=== PATIENT | female | born 1975 | race Caucasian/White ===

== ENCOUNTER 2020-01-23 22:47 | Inpatient (IN) | payer MEDICARE ==
[~2020-01-23] VITALS: Ht 165.1 cm; Wt 112.4 kg
--- NOTE | ~2020-01-23 | HEMODYNAMI ---
PATIENT:OZZY RODRIGUEZ MEDICAL RECORD: [id number] : 73 LOCATION:[facility] D.2122 ADMISSION DATE: 01/23/20 Generatedon:01/24/202011:43 Patient name: OZZY RODRIGUEZ Patient #: [id number] SSN: [id number] : 1975 Date of study: 01/24/2020 Page: Of Hemodynamic Procedure Report Patient Data Patient Demographics Procedure consent was obtained First Name: OZZY Gender: Female Last Name: JENNIFER : 1975 Patient #: [id number] Age: 44 year(s) Race: Unknown SSN: [id number] Additional ID: [id number] Contact details [address]: [address] [place] [address] 4 State: [place] City: [place] Zip code: [address] Past Medical History Allergies Allergen Reaction Date Comments Reported Other allergy 01/24/2020 ARTIFICIAL SWEETNERS, SILK TAPE, MOBIC Admission Admission Data Admission Date: 01/23/2020 Admission Time: 23:30 Room #: D.2122 Height (in.): 64.96 BSA: 2.17 (m2) Height (cm.): 165 BMI: 41.51 (kg/m2) Weight (lbs.): 249.12 Weight (kg.): 113 Lab Results Lab Result Date: 01/24/2020 Lab Result Time: 0:00 Biochemistry Name Units Result Min Max BUN mg/dl 17 --(---*)-- 7 18 Creatinine mg/dl 0.7 --(*---)-- 0.6 1.3 eGFR ml/min 90 --(*---)-- 90 120 NONAFRICAN CBC Name Units Result Min Max Hematocrit % 43.7 --(*---)-- 42 54 Hemoglobin g/dl 14.7 --(-*--)-- 13.5 17.5 Procedure Procedure Types Cath Procedure Diagnostic Procedure C [facility] w/Coronaries Procedure Description Procedure Date Procedure Date: 01/24/2020 Procedure Start Time: 11:32 Procedure End Time: 11:40 Procedure Staff Name Function Esme Gibson MD Performing Physician Christi Myers RT Monitor Angeline Flores RT Scrub Zina Reeder RN Nurse Procedure Data Cath Procedure Fluoroscopy Diagnostic fluoroscopy Total fluoroscopy Time: 0.8 time: 0.8 min min Diagnostic fluoroscopy Total fluoroscopy dose: 152 dose: 152 mGy mGy Contrast Material Contrast Material Type Amount (ml) Isovue 300 13 Entry Location Entry Primary Successful Side Size Upsize Upsize Entry Closure Cook ccessful Closure Location (Fr) 1 (Fr) 2 (Fr) Remarks Device Remarks Radial Right 6 Fr Mechanical artery Short Compression Estimated blood loss: 5 ml Diagnostic catheters Device Type Used For End Catheter Placement DIAGNOSTIC [place] 110cm 5 Procedure Fr catheter ([id number]) Procedure Complications No complications Procedure Medications Medication Administration Route Dosage 0.9% NaCl I.V. 100 ml/hr Oxygen etCO2 Nasal cannula 2 l/min Lidocaine 2% added to field 20 Heparin Flush Bag added to field 2 bags (1000units/500ml NS) Versed I.V. 1 mg Fentanyl I.V. 25 mcg Radial Cocktail added to field 1 syringe (Verapamil 2mg/Nitro 400mcg/Heparin 1500units) Hemodynamics Rest BSA: 2.17 (m2) HGB: 14.7 (g/dl) O2 Consumption: Estimated: 219.53 (ml/min) O2 Co nsumption indexed: Estimated:101.17 (ml/min/m) Heart Rate: 74 (bpm) Pressure Samples Time Site Value (mmHg) Purpose Heart Use Rate(bpm) 11:36 LV 161/-15,13 EDP 82 11:36 LV 157/-12,13 Snapshot 82 Gradients Valve Time Site Site Mean SEP/DFP Peak To Heart Use 1 2 (mmHg) (sec/min) Peak Rate (mmHg) (bpm) Aortic 11:37 LV AO 84 Snapshots Pre Cath Intra NCS Post Cath Vital Signs Time Heart Resp SPO2 etCO2 NIBP (mmHg) Rhythm Pain Sedation Rate (ipm) (%) (mmHg) Status Level (bpm) 11:06:41 75 12 96 22.4 169/100(132) NSR 0 (11) 10(A) , No pain 11:11:09 77 16 96 26.1 159/93(140) NSR 0 (11) 10(A) , No pain 11:15:40 75 15 96 23.1 147/92(119) NSR 0 (11) 10(A) , No pain 11:20:06 83 16 95 23.1 154/90(119) NSR 0 (11) 10(A) , No pain 11:24:34 81 12 95 23.9 142/89(124) NSR 0 (11) 10(A) , No pain 11:28:54 83 19 96 23.9 143/89(112) NSR 0 (11) 10(A) , No pain 11:33:19 79 19 97 24.6 152/99(122) NSR 0 (11) 10(A) , No pain 11:37:43 84 24 96 23.1 135/84(109) NSR 0 (11) 10(A) , No pain Medications Time Medication Route Dose Verified Delivered Reason Notes E ffectiveness by by 11:04:55 0.9% NaCl I.V. 100 Norred Zina used for ml/hr Arthur Reeder project product manager 11:05:01 Oxygen etCO2 2 l/min Norred Zina used for Nasal Arthur Reeder procedure cannula RN 11:05:05 Lidocaine 2% added 20ml Norred Norred for local to vial Arthur Gibson MD anesthetic field 11:05:10 Heparin Flush added 2 bags Norred Norred used for Bag to Arthur Gibson MD procedure (1000units/500ml field NS) 11:05:52 Radial Cocktail added 1 Norred Norred used for (Verapamil to syringe Arthur Gibson MD procedure 2mg/Nitro field 400mcg/Heparin 1500units) 11:18:18 Versed I.V. 1 mg Norred Zina for Arthur Reeder sedation RN 11:18:28 Fentanyl I.V. 25 mcg Norred Zina for Arthur Reeder sedation air brush decorator Log Time Note 10:32:08 Informed consent obtained and on chart 10:32:32 Procedure Status Urgent Heart Cath (IP). 10:32:33 Time tracking: Regular hours (M-F 7:00 - 5:00) 10:32:36 Plan of Care:Hemodynamics will remain stable., Cardiac rhythm will remain stable., Comfort level will be maintained., Respiratory function will remain adequate., Patient/ family verbilizes understanding of procedure., Procedure tolerated without complication., Recovers from procedure without complications.. 10:32:45 H&P Date Dictated: 01/24/2020 ER History on chart.. 10:35:11 Lab Result : BUN 17 mg/dl 10:35:11 Lab Result : Creatinine 0.7 mg/dl 10:35:11 Lab Result : eGFR NONAFRICAN 90 ml/min 10:35:11 Lab Result : Hematocrit 43.7 % 10:35:11 Lab Result : Hemoglobin 14.7 g/dl 10:35:58 Patient Weight : 249.12 lbs 10:36:05 Patient Height : 64.96 inches 10:36:32 Angeline Flores RT(R) sent for patient. Start room use. 10:59:40 Patient received from Med II to CCL 1 Alert and oriented. Tansferred to table in Supine position. 10:59:43 Warm blankets applied, and joel hugger turned on for patient comfort. 10:59:44 Correct patient and procedure confirmed by team. 10:59:44 ECG and BP/O2 sat monitors applied to patient. 10:59:46 Full Disclosure recording started 10:59:48 Pre-op teaching completed and patient verbalized understanding. 10:59:54 Patient NPO since Midnight. 10:59:58 Is the patient allergic to Iodine/contrast media? No. 11:00:00 Was the patient premedicated? N/A 11:00:02 Is patient on blood thinner?Yes 11:00:05 ACC The patient was administered the following blood thiners within the last 24 hours: ACCPlavix 11:00:09 Patient diabetic? Yes. 11:00:11 If diabetic: On Metformin? Yes 11:04:55 0.9% NaCl 100 ml/hr I.V. was administered by Zina Reeder RN; used for procedure; Verbal order read back and verified. 11:05:01 Oxygen 2 l/min etCO2 Nasal cannula was administered by Zina Reeder RN; used for procedure; Verbal order read back and verified. 11:05:05 Lidocaine 2% 20ml vial added to field was administered by Esme Gibson MD; for local anesthetic; Verbal order read back and verified. 11:05:10 Heparin Flush Bag (1000units/500ml NS) 2 bags added to field was administered by Esme Gibson MD; used for procedure; Verbal order read back and verified. 11:05:14 Vital chart was started 11:05:52 Radial Cocktail (Verapamil 2mg/Nitro 400mcg/Heparin 1500units) 1 syringe added to field was administered by Esme Gibson MD; used for procedure; Verbal order read back and verified. 11:07:34 Baseline sample Acquired. 11:07:40 Rhythm: sinus rhythm 11:07:43 Family unavailable. 11:08:28 Patient allergic to Other allergyARTIFICIAL SWEETNERS, SILK TAPE, MOBIC 11:08:34 If on Metformin: Last Dose? 01/23/2020 11:08:38 Patient not . Patient has had tubal. 11:08:46 Previous problem with sedation/anesthesia? No ? 11:08:47 Snore? Yes 11:08:48 Sleep apnea? No 11:08:48 Deviated septum? No 11:08:49 Opens mouth fully? Yes 11:08:50 Sticks out tongue? No 11:08:58 Airway obstruction? Yes ASTHMA 11:09:01 Dentures? No ? 11:09:03 Pre procedure: right dorsailis pedis pulse 1+ Palpable, but thready & weak; easily obliterated 11:09:07 Patient pain scale 0/10 ?. 11:09:11 IV patent on arrival in right wrist with 0.9% NaCl at O. 11:09:14 Lab results completed and on chart. 11:09:17 Right Radial & Right Groin area was prepped with chlora-prep and draped in sterile fashion 11:09:18 Alarms reviewed by R. N. 11:09:18 Sharps counted by scrub and verified by R.N. 11:09:19 Sharps counted by scrub and verified by R.N. 11:09:22 ACIST Syringe (34010) opened to sterile field. 11:09:23 Bag Decanter () opened to sterile field. 11:09:24 ACIST Manifold (55241) opened to sterile field. 11:09:25 ACIST Hand Control (56496) opened to sterile field. 11:09:32 Tegaderm 4 x 4 (1626W) opened to sterile field. 11:09:34 Medline Cath Pack ([id number]) opened to sterile field. 11:09:37 EMERALD Guide Wire (472-044) opened to sterile field. 11:17:14 --------ALL STOP TIME OUT------ 11:17:14 Final Timeout: patient, procedure, and site verified with staff and physician. All members of the team are in agreement. 11:17:17 Right groin site verified by team. 11:17:21 Fire Safety Assessment: A--An alcohol-based skin anteseptic being used preoperatively., C--Open oxygen or nitrous oxide is being used., D--An ESU, laser, or fiber-optic light is being used. 11:17:24 Physical assessment completed. ASA score P 2 - A patient with mild systemic disease as per Esme Gibson MD. 11:17:28 1) 90+ Normal kidney functon but urine findings or structural abnormalities or genetic trait point to kidney disease. 11:17:53 Maximum allowable contrast dose (3.7 X eGFR X 0.75)250 ml. 11:17:57 Sedation plan: IV Moderate Sedation Medication:Versed, Fentanyl 11:18:18 Versed 1 mg I.V. was administered by Zina Reeder RN; for sedation; Verbal order read back and verified. 11:18:28 Fentanyl 25 mcg I.V. was administered by Zina Reeder RN; for sedation; Verbal order read back and verified. 11:31:16 Procedure started. 11:31:31 Use device set Radial Dx or PCI 11:31:35 MBrace Wrist Support ([id number]) opened to sterile field. 11:31:41 SHEATH 6FR RAIN (4428736) opened to sterile field. 11:32:13 Local anesthetic to right radial artery with Lidocaine 2% by Esme Gibson MD.INITIAL ACCESS ONLY 11:32:52 Zero performed for pressure channel P1 11:34:32 A 6 Fr Short sheath was inserted into the Right Radial artery 11:35:37 A DIAGNOSTIC [place] 110cm 5 Fr catheter (212773) was advanced over the wire and used for Procedure. 11:35:56 LV gram done using MORENO 11:36:02 Injector settings: Ml/sec: 12, Volume: 8, 11:36:39 LV hemodynamics recorded. 11:37:09 EF : 55 % 11:37:29 RCA angiography performed. 11:37:46 LCA angiography performed. 11:37:48 ACCDominant side:Left 11:37:49 Catheter removed. 11:37:57 Procedure ended.(Physican Out) 11:38:07 ZEPHYR REGULAR TR BAND (511486) opened to sterile field. 11:38:24 Contrast amount:Isovue 300 13ml. 11:38:28 Maximum allowable dose exceeded? No. 11:38:29 Sharps counted by scrub and verified by R.N. 11:38:54 Sheath removed intact; hemostasis achieved with Mechanical Compression to the Right Radial artery. 11:39:03 Fluoroscopy time 00.80 minutes. 11:39:07 Fluoroscopy dose: 152 mGy 11:39:07 Flurop Dose total: 152 11:39:12 Dose Area Product 84383 mGy/cm. 11:39:16 [place] band inflated with 10cc of air. 11:39:18 Post-procedure physical assessment completed. ASA score P 2 - A patient with mild systemic disease as per Esme Gibson MD. 11:39:22 Post procedure rhythm: sinus rhythm 11:39:24 Estimated blood loss: 5 ml 11:39:25 Post procedure instruction explained to patient.Patient verbalizes understanding. 11:39:26 Patient needs reinforcement of post procedure teaching. 11:40:07 Procedure and supply charges have been captured, reviewed, submitted and are correct. 11:40:09 Procedure Complication : No complications 11:40:24 Vital chart was stopped 11:40:25 [facility] Findings: mild to moderate CAD (<70%) 11:40:27 Operative report dictated upon procedure completion. 11:40:27 See physician's report for complete and final results. 11:40:29 Report given to [facility]. 11:40:32 Patient transfered to [facility] with Bed. 11:40:34 Procedure ended. 11:40:34 Full Disclosure recording stopped 11:41:01 End room use (Document Last) Device Usage Item Name Manufacture Quantity Catalog Hospital Part Current Minima l Lot# / Number Charge Number Stock Stock Serial# Code ACIST Acist 1 78304 [id number] 633648 506100 20 Syringe VMO Systems (76434) Glowpoint Inc Bag Microtek 1 085503 91230 344032 5 DecEvery1Mobile Inc. (2002S) ACIST Acist 1 62890 220216 122176 545596 5 Manifold Medical (99805) Systems Inc ACIST Hand Acist 1 98556 578550 341066 497506 5 Control Medical (78353) Systems Inc Tegaderm 4 3M 1 1626W 374395 842771 651103 5 x 4 (1626W) Medline Medline 1 [id number] 166804 39171 702728 5 Cath Pack ([id number]) EMERALD Cardinal 1 502-776 978030 600658 907225 5 Guide Wire Health (628-221) MBrace Advanced 1 140-0250-00 124811 25674 803146 5 Wrist Vascular Support Dynamics ([id number]) SHEATH 6FR Cardinal 1 5965190 152493 6194712 156529 5 [facility] (1732676) DIAGNOSTIC Terumo 1 17-2041 572278 879781 203325 5 [place] 110cm 5 Fr catheter (340109) ZEPHYR Cardinal 1 907188 496246 2916481 187437 5 REGULAR TR Health BAND (178844) Signature Audit Carman Stage Time Signature Unsigned Intra-Procedure 01/24/2020 Christi Myers 11:42:43 AM RT(R) Intra-Procedure 01/24/2020 Zina Reeder 11:43:03 AM RN Intra-Procedure 01/24/2020 Esme Gibson MD 11:43:20 AM [facility] [address] [place] [address]
[2020-01-23] MEDS ORDERED: LEVEMIR IN100 UNITS/ SC (23:01)
[2020-01-23] MEDS ORDERED: NOVOLOG100 UNIT/1 SC (23:01)
[2020-01-23] MEDS ORDERED: LISINOPRIL20 MG PO (23:02)
[2020-01-23] MEDS ORDERED: COLACE100 MG PO (23:02)
[2020-01-23] MEDS ORDERED: GLUCOPHAGE1000 MG PO (23:02)
[2020-01-23] MEDS ORDERED: COREG 3.1253.125 MG PO (23:02)
[2020-01-23] MEDS ORDERED: ZANAFLEX4 MG PO (23:03)
[2020-01-23] MEDS ORDERED: RESTORIL15 MG PO (23:03)
[2020-01-23] MEDS ORDERED: ULTRAM50 MG PO (23:04)
[2020-01-23 23:12] LABS: BASOPHILS 0.2 % (0-2); EOSINOPHILS 1.1 % (0-7); HEMATOCRIT 47.7 % (36.0-48.0); IMMATURE GRANULOCYTES 0.4 % (0-5); LYMPHOCYTES 26.6 % (15-50); MCH 31.7 pg (26.0-34.0); MCHC 33.5 g/dL (31.0-37.0); MCV 94.6 fL (80.0-100.0); MEAN PLATELET VOLUME 9.6 fL (7.4-10.4); MONOCYTES 5.7 % (2-11); PLATELET COUNT 295 10x3/uL (130-400); RBC 5.04 10x6/uL (4.00-5.40); RDW 13.9 % (11.5-14.5); WBC 16.9 10x3/uL (4.8-10.8)
[2020-01-23 23:20] LABS: INR 0.98 (0.85-1.17)
[2020-01-23 23:21] LABS: APTT 30.4 SECONDS (22.8-39.4); CALC OSMOLALITY 283 mosm/kg (275-300); CALCIUM 9.4 mg/dL (8.5-10.1); CARBON DIOXIDE 25.4 mmol/L (21.0-32.0); CHLORIDE - SERUM 104 mmol/L (98-107); CREATININE - SERUM 0.7 mg/dL (0.6-1.3); GLUCOSE 178 mg/dL (74-106); POTASSIUM - SERUM 3.9 mmol/L (3.5-5.1); SODIUM 139 mmol/L (136-145); UREA NITROGEN 17 mg/dL (7-18); eGFR NON AFRICAN AMERICAN > 90 mL/min (90-120)
[2020-01-23 23:37] LABS: ALBUMIN 3.2 g/dL (3.4-5.0); ALKALINE PHOSPHATASE 88 U/L (30-120); ALT (SGPT) 28 U/L (10-68); BILIRUBIN - TOTAL 0.41 mg/dL (0.2-1.3); CREATINE KINASE 49 UL (21-215); MAGNESIUM - SERUM 1.5 mg/dL (1.8-2.4); PROTEIN - SERUM 7.3 g/dL (6.4-8.2); TROPONIN-I 0.056 ng/mL (0.000-0.060)
--- NOTE | 2020-01-24 03:58 | NUR ---
PATIENT LAYING IN BED ON RIGHT SIDE. PATIENT EYES CLOSED BREATHING EVEN AND UNLABORED. PATIENT EASILY AROUSED AND ASKED FOR A WARM BLANKET TO WHICH I GAVE HER. NO OTHER NEEDS OR COMPLAINTS AT THIS TIME. CALL LIGHT WITHIN REACH AND BED IN LOWEST LOCKED POSITION.
[2020-01-24 04:30] VITALS: BP 148/74
[2020-01-24 05:27] LABS: BASOPHILS 0.1 % (0-2); EOSINOPHILS 1.1 % (0-7); HEMATOCRIT 43.7 % (36.0-48.0); HEMOGLOBIN 14.7 g/dL (12-16); IMMATURE GRANULOCYTES 0.4 % (0-5); LYMPHOCYTES 26.6 % (15-50); MCH 31.5 pg (26.0-34.0); MCHC 33.6 g/dL (31.0-37.0); MCV 93.6 fL (80.0-100.0); MEAN PLATELET VOLUME 9.6 fL (7.4-10.4); NEUTROPHILS 66.8 % (40-80); PLATELET COUNT 303 10x3/uL (130-400); RBC 4.67 10x6/uL (4.00-5.40); RDW 13.9 % (11.5-14.5); WBC 16.7 10x3/uL (4.8-10.8)
[2020-01-24 06:08] VITALS: BP 164/109; BMI 41.3
[2020-01-24 06:13] VITALS: BMI 41.3
[2020-01-24 06:51] LABS: ALBUMIN 2.8 g/dL (3.4-5.0); ALKALINE PHOSPHATASE 76 U/L (30-120); ALT (SGPT) 26 U/L (10-68); CALC OSMOLALITY 281 mosm/kg (275-300); CALCIUM 8.7 mg/dL (8.5-10.1); CARBON DIOXIDE 23.1 mmol/L (21.0-32.0); CHLORIDE - SERUM 105 mmol/L (98-107); CKMB 0.7 U/L (0.0-3.6); CREATINE KINASE 39 UL (21-215); CREATININE - SERUM 0.7 mg/dL (0.6-1.3); GLUCOSE 164 mg/dL (74-106); POTASSIUM - SERUM 3.5 mmol/L (3.5-5.1); PROTEIN - SERUM 6.5 g/dL (6.4-8.2); SODIUM 138 mmol/L (136-145); TROPONIN-I 0.056 ng/mL (0.000-0.060); UREA NITROGEN 17 mg/dL (7-18); eGFR NON AFRICAN AMERICAN > 90 mL/min (90-120)
[2020-01-24 08:29] VITALS: BP 136/57
--- NOTE | 2020-01-24 11:07 | NUR ---
PT TO FRONT END MECHANIC.
--- NOTE | 2020-01-24 11:56 | NUR ---
RECEIVED PT BACK TO ROOM 2121. PT STILL A LITTLE DROWSY BUT EASILY AROUSES TO VOICE. VITAL SIGNS STABLE, PLACED PT ON FREQUENT VITAL SIGNS. TR BAND NOTED TO RT WRIST WITH CDI DRESSING, SMALL AMOUNT OF DRY BLOOD NOTED TO SITE. PT DENIES ANY NEEDS AT THIS TIME. CALL LIGHT IN REACH, NAD NOTED, WILL CONTINUE TO MONITOR.
[2020-01-24 12:48] LABS: CKMB 0.8 U/L (0.0-3.6); CREATINE KINASE 32 UL (21-215); TROPONIN-I 0.036 ng/mL (0.000-0.060)
[2020-01-24 13:34] VITALS: Ht 165.1 cm; Wt 112.4 kg
--- NOTE | 2020-01-24 15:02 | NUR ---
REMOVED HALF OF AIR IN TR BAND. NO BLEEDING NOTED. WILL CHECK BACK IN 30MIN. INFORMED PT OF NEED FOR URINE SAMPLE. COLLECTION CUP LEFT AT BEDSIDE, ALSO PROVIDED PT WITH CUP OF LEMON CHICKALOON. PT DENIES ANY OTHER NEEDS AT THIS TIME. CALL LIGHT IN REACH, NAD NOTED, WILL CONTINUE TO MONITOR.
--- NOTE | 2020-01-24 15:42 | NUR ---
REMAINING AIR REMOVED FROM TR BAND. APPLIED 2X2 AND BANDAID TO SITE. NO BLEEDING OR HEMATOMA NOTED. PT DENIES ANY NEEDS AT THIS TIME. CALL LIGHT IN REACH, NAD NOTED, WILL CONTINUE TO MONITOR.
--- NOTE | 2020-01-24 16:52 | NUR ---
BLOOD SUGAR OF 285, 6UNITS GIVEN PER S/S. PT DENIES ANY OTHER NEEDS AT THIS TIME. CALL LIGHT IN REACH, NAD NOTED,WILL CONTINUE TO MONITOR.
[2020-01-24 18:04] LABS: BILIRUBIN NEGATIVE (NEGATIVE); GLUCOSE 1000 mg/dL (NEGATIVE); KETONE NEGATIVE (NEGATIVE); NITRITE NEGATIVE (NEGATIVE); UROBILINOGEN NORMAL (NORMAL)
[2020-01-24 18:07] LABS: WHITE CELLS - URINE 25-50 /hpf (NEGATIVE)
[2020-01-24 18:08] LABS: BACTERIA MODERATE /hpf (NEGATIVE); RED CELLS - URINE 0-5 /hpf (0-5)
[2020-01-24 18:19] LABS: CKMB 0.5 U/L (0.0-3.6); CREATINE KINASE 29 UL (21-215)
[2020-01-24 18:25] VITALS: BP 128/61
[2020-01-24 20:30] VITALS: BP 138/60
--- NOTE | 2020-01-24 22:17 | NUR ---
INITIAL ROUNDS COMPLETED AT 1920 HRS. PT DENIED ANY DISCOMFORT. ASSESSMENT COMPLETED AT 2014 HRS. VSS. SR PER CM HR 73. ALERT AND ORIENTED TO PERSON, PLACE AND TIME. MATIAS. DRESSING TO R WRIST CLEAN, DRY AND INTACT WITH NO SWELLING, BLEEDING OR BRUISING. PALPABLE R RADIAL PULSE. IV TO RFA SL. LUNGS CTA. PM FSBS 279. 6 UNITS REG INSULIN GIVEN SUB-Q TO UPPER L ARM. PM MEDS GIVEN. PM SNACK SERVED. PT IN SHOWER AT 2130 HRS. R WRIST WRAPPED WITH WATERPROOF TAPE. INFORMED PT NOT TO SCRUB R WRIST. PT STATED UNDERSTANDING. BED LINENS CHANGED WHILE PT IN SHOWER. PT CURRENTLY AMBULATING HALLS. GAIT EVEN AND STEADY.
--- NOTE | 2020-01-24 23:54 | NUR ---
PT AWAKE; DENIED ANY DISCOMFORT. NOCHANGES TO R WRIST NOTED. CALL LIGHT WITHIN REACH.
[2020-01-25 00:30] VITALS: BP 108/66
--- NOTE | 2020-01-25 02:22 | NUR ---
PT RESTING WITH EYES CLOSED. RESP EVEN AND REGULAR. SR UP X1, CALL LIGHT WITHIN REACH.
--- NOTE | 2020-01-25 04:26 | NUR ---
PT RESTING WITH EYES CLOSED. RESP EVEN AND REGULAR. CALL LIGHT WITHIN REACH.
[2020-01-25 04:30] VITALS: BP 124/60
[2020-01-25 04:56] LABS: BASOPHILS 0.3 % (0-2); EOSINOPHILS 1.6 % (0-7); HEMATOCRIT 42.9 % (36.0-48.0); HEMOGLOBIN 14.3 g/dL (12-16); IMMATURE GRANULOCYTES 0.5 % (0-5); LYMPHOCYTES 30.8 % (15-50); MCH 31.4 pg (26.0-34.0); MCHC 33.3 g/dL (31.0-37.0); MCV 94.3 fL (80.0-100.0); MEAN PLATELET VOLUME 9.4 fL (7.4-10.4); MONOCYTES 6.9 % (2-11); NEUTROPHILS 59.9 % (40-80); PLATELET COUNT 283 10x3/uL (130-400); RBC 4.55 10x6/uL (4.00-5.40); RDW 13.9 % (11.5-14.5); WBC 13.2 10x3/uL (4.8-10.8)
[2020-01-25 05:14] LABS: CALC OSMOLALITY 282 mosm/kg (275-300); CALCIUM 8.4 mg/dL (8.5-10.1); CARBON DIOXIDE 22.3 mmol/L (21.0-32.0); CHLORIDE - SERUM 105 mmol/L (98-107); CREATININE - SERUM 0.8 mg/dL (0.6-1.3); SODIUM 136 mmol/L (136-145); UREA NITROGEN 13 mg/dL (7-18); eGFR NON AFRICAN AMERICAN 82 mL/min (90-120)
[2020-01-25 05:15] LABS: GLUCOSE 293 mg/dL (74-106)
--- NOTE | 2020-01-25 06:35 | NUR ---
VSS THROUGHOUT NIGHT. SR PER CM. NO CHANGES TO R WRIST NOTED. AM FSBS 293. 6 UNITS REG INSULIN GIVEN SUB-Q TO UPPER L ARM. PT STATED ULTRAM CONTROLLED HER CHRONIC BACK PAIN. NEEDS MET; WILL CONTINUE TO MONITOR.
--- NOTE | 2020-01-25 08:29 | NUR ---
AM MEDS GIVEN AT THIS TIME. PT IN BED, EATING BREAKFAST. PT A/O X4, RESP EVEN AND NONLABORED ON RA. RT FA IV SL. PT DENIES ANY NEEDS AT THIS TIME. CALL LIGHT IN REACH, NAD NOTED, WILL CONTINUE TO MONITOR.
[2020-01-25 08:48] VITALS: BP 117/53
--- NOTE | 2020-01-25 09:56 | EC ---
PATIENT:OZZY RODRIGUEZ DATE OF SERVICE: 01/23/20 SEX: F MEDICAL RECORD: [id number] DATE OF : 73 LOCATION:D. D.212 AGE OF PATIENT: 44 ADMISSION DATE: 01/24/20 REFERRING PHYSICIAN: INTERPRETING PHYSICIAN: CRISTINA GRAY MD ECHOCARDIOGRAM REPORT ECHO CHARGES 4 ECHO COMPLETE Date: 01/24/20 CLINICAL DIAGNOSIS: NON STEMI ECHOCARDIOGRAPHIC MEASUREMENTS (adult normal given) AC root (d.<3.7cm) 3.9 cm LV Septum d (<1.2 cm> 1.3 cm Valve Excursion 1.7 cm LV Septum (systole) 1.6 cm Left Atria (s.<4.0cm> 4.2 cm LVPW d(<1.2cm) 1.5 cm RV (d.<2.3cm) 3.4 cm LVPW (sytole) 1.6 cm LV diastole(<5.6CM) 4.4 cm MV E-F(>70mm/sec) cm LV systole 2.6 cm LVOT Diameter 2.0 cm MV exc.(>10mm) 1.0 cm Est.ejection fraction (50-75%) % DOPPLER: LVIT cm/sec A 94.0 cm/sec E 76.0 cm/sec LA cm/sec RVSP 17 mmHg LVOT 94 cm/sec AOP1/2T m/s Asc. Ao 142 cm/sec RVOT 71 cm/sec RA cm/sec PA 90 cm/sec AV Gradient Peak 8.09 mmHg AV Mean 4.66 mmHg AV Area 2.3 cm MV Gradient Peak 5.94 mmHg MV Mean 2.60 mmHg MV Area cm COMMENTS: Call Out Operator: 2 UDAY CAMACHO Supervisor Fine Grading: 4 Dr. Gray TAPE# PACS Pericardial Effusion N DATE OF SERVICE: PROCEDURE: Transthoracic echocardiogram. FINDINGS: Left ventricle shows ejection fraction hyperdynamic EF of 60%. There is evidence of left ventricular hypertrophy, which is mild to moderate and concentric in nature. Left atrium is mildly dilated, otherwise normal function. ECHOCARDIOGRAM REPORT [id number] OZZY RODRIGUEZ Aortic valve is normal structure and function. Mitral valve is normal structure and function. Tricuspid valve is normal. RVSP appears to be normal. Right ventricle is mildly dilated with normal function. Right atrium is normal. Pulmonic valve is normal. IMPRESSION: The patient has evidence of hypertensive heart disease with normal left ventricular systolic function. TRANSINT:[id number] Voice Confirmation ID: [id number] DOCUMENT ID: [id number] CRISTINA GRAY MD at 0956 CC: [id number] DICTATION DATE: 01/24/20 1253 COOK VEGETABLE: 01/24/20 1525 ADM IN [place] [id number] [place] [address]
--- NOTE | 2020-01-25 11:24 | NUR ---
BLOOD SUGAR OF 381, 10UNITS OF INSULIN GIVEN.
[2020-01-25 12:59] VITALS: BP 125/53
[2020-01-25] MEDS ORDERED: LEVAQUIN750 MG PO (13:44)
--- NOTE | 2020-01-25 14:27 | NUR ---
PROVIDED VERBAL AND WRITTEN DISCHARGE TEACHING TO PT, WHO VERBALIZED UNDERSTANDING REGARDING TEACHING. D/C RT FA IV WITH CATHETER TIP INTACT. HEART MONITOR REMOVED AND TAKEN TO CRITICAL CARE CNS. PT WAITING ON RIDE, WILL NOFITY WHEN READY FOR WHEELCHAIR.
--- NOTE | 2020-01-25 15:57 | NUR ---
WHEELED PT TO ER ENTRANCE WITH ALL BELONGINGS, NAD NOTED.
== END 2020-01-25 15:58 | disposition home or self-care (01) | DRG 281 ==
LOC: D.ER 22:47 → D.M2 23:30 → OBSVTIME 23:30 → D.M2 01-24 20:03
PROVIDERS: Family Medicine; Internal Medicine Cardiovascular Disease; ADMIT Internal Medicine Nephrology; ATTEND Internal Medicine Nephrology
PROC: B2151ZZ Fluoroscopy of Left Heart using Low Osmolar Contrast (ICD-10-PCS; 2020-01-24)
PROC: 4A023N7 Measurement of Cardiac Sampling and Pressure, Left Heart, Percutaneous Approach (ICD-10-PCS; 2020-01-24)
PROC: B2111ZZ Fluoroscopy of Multiple Coronary Arteries using Low Osmolar Contrast (ICD-10-PCS; principal; 2020-01-24 10:30)
DX: I11.0 Hypertensive heart disease with heart failure (principal); I21.A1 Myocardial infarction type 2; F17.203 Nicotine dependence unspecified, with withdrawal; N39.0 Urinary tract infection, site not specified; I50.30 Unspecified diastolic (congestive) heart failure; E83.42 Hypomagnesemia; E11.9 Type 2 diabetes mellitus without complications